=== PATIENT | female | born 1995 ===

== ENCOUNTER 2022-02-11 19:40 | Emergency (ER) | payer MEDICAID ==
[~2022-02-11] VITALS: Ht 160 cm; Wt 75.5 kg
[2022-02-11 19:59] VITALS: BP 105/65; PULSE 94; TEMP 98.2
[2022-02-11] MEDS ORDERED: PRENATAL TABLET PO (20:08)
[2022-02-11] MEDS ORDERED: ELIMITE TOP (21:12)
== END 2022-02-11 21:22 | disposition home or self-care (01) ==
LOC: COL.ER 19:40
DX: O99.891 Other specified diseases and conditions complicating pregnancy (principal); R21 Rash and other nonspecific skin eruption; Z3A.01 Less than 8 weeks gestation of pregnancy; Z28.310 Unvaccinated for COVID-19